=== PATIENT | female | born 1960 | race Caucasian/White ===

== ENCOUNTER → 2024-04-19 06:26 | Day surgery (SDC) | payer MEDICARE, SELFPAY | LOC: GI 06:26 | PROVIDERS: ATTENDING PHYSICIAN Internal Medicine Gastroenterology | DX: Z12.11 Encounter for screening for malignant neoplasm of colon (principal); D12.2 Benign neoplasm of ascending colon; K64.8 Other hemorrhoids | CPT/HCPCS: 45385; 88305 ==